=== PATIENT | male | born 1990 | race Two or more races ===

== ENCOUNTER 2021-10-06 22:03 | Emergency (ER) | payer OTHER ==
[~2021-10-06] VITALS: Ht 185.4 cm; Wt 79.4 kg
[2021-10-06] MEDS ORDERED: TETANUS-DIPTH-ACEL PERTUSSIS 0.5ML SYR Tdap IM ONE (22:15)
[2021-10-06] MEDS ORDERED: HYDROcodone-ACET 5/325MG TAB PO ONE (22:15)
[2021-10-06] MEDS ORDERED: SODIUM CHLORIDE 0.9% 1,000 ML IV ONE (22:30)
[2021-10-06] MEDS ORDERED: ONDANSETRON HCL 4 MG/2 ML VIAL ONE (22:36)
[2021-10-06] MEDS ORDERED: MORPHINE SULFATE 4 MG/ML SYR/VIAL ONE (22:37)
[2021-10-06] MEDS ORDERED: ONDANSETRON HCL 4 MG/2 ML VIAL IV ONE (23:00)
[2021-10-06] MEDS ORDERED: MORPHINE SULFATE 4 MG/ML SYR/VIAL IV ONE (23:00)
[2021-10-07 01:50] VITALS: BP 117/71
== END 2021-10-07 02:00 | disposition home or self-care (01) ==
LOC: ER 22:03
DX: S40.212A Abrasion of left shoulder, initial encounter (principal); S50.812A Abrasion of left forearm, initial encounter; S80.212A Abrasion, left knee, initial encounter; M79.10 Myalgia, unspecified site; V29.9XXA Motorcycle rider (driver) (passenger) injured in unspecified traffic accident, initial encounter; Y93.89 Activity, other specified; Y92.89 Other specified places as the place of occurrence of the external cause; Y99.8 Other external cause status
CPT/HCPCS: 70450; 71045; 72170; 73030; 73090; 73130; 73552; 73562; 90471; 90715; 96361; 96374; 96375; 99285; J2270; J2405; J7030